=== PATIENT | male | born 1965 | race Caucasian/White ===

== ENCOUNTER 2017-05-09 12:47 | Emergency (ER) | payer BC ==
[2017-05-09] MEDS ORDERED: Aspirin 81 MG Tab.Chew PO ONE (15:21)
[2017-05-09] MEDS ORDERED: Ketorolac 60 MG/2 ML SDV IM ONE (17:19)
--- NOTE | 2017-05-09 17:19 | EDM.PDOC ---
[id number] CHEST PAINS Time Seen by Provider: 05/09/17 13:25 Source of Information: Reports: Patient History Limitations: Reports: No Limitations - History of Present Illness INITIAL COMMENTS - FREE TEXT/NARRATIVE: pt has been under a great deal of stress at his work situation. He has been having chest pain which is over the left chest to the left axilla and down the left arm. He had an episode that occured earlier today. He has had a past history of lymphoma. He did not get sweaty and did not vomit. Onset: Gradual Duration: Day(s): Location: Reports: Chest Associated Symptoms: Reports: Chest Pain, Other ( left arm pain. ) Chest Pain Score (Numeric/FACES): 2 - Related Data Allergies Allergy/AdvReac Type Severity Reaction Status Date / Time No Known Allergies Allergy Verified 05/09/17 13:23 Home Meds: Home Meds ALPRAZolam 1 tab PO BID PRN 05/09/17 [History] Cyclobenzaprine [Flexeril] 1 tab PO ASDIRECTED 05/09/17 [History] Naproxen 1 tab PO BID 05/09/17 [History] Pantoprazole [ProTONIX] 1 tab PO DAILY 05/09/17 [History] Past Medical History HEENT History: Reports: Allergic Rhinitis, Other (See Below) Other HEENT History: septum defect Respiratory History: Reports: Asthma Genitourinary History: Reports: Renal Calculus Musculoskeletal History: Reports: Fracture Neurological History: Reports: Migraines Psychiatric History: Reports: Anxiety Oncologic (Cancer) History: Reports: Non-Hodgkin's Lymphoma - Past Surgical History Male Surgical History: Reports: Other (See Below) Other Male Surgeries/Procedures: uteroscopy for kidney stone Musculoskeletal Surgical History: Reports: Shoulder Surgery Social & Family History - Tobacco Use Smoking Status *Q: Never Smoker - Alcohol Use Days Per Week of Alcohol Use: 5 Number of Drinks Per Day: 2 Total Drinks Per Week: 10 - Recreational Drug Use Recreational Drug Use: No ED ROS GENERAL - Review of Systems Review Of Systems: See Below Constitutional: Reports: No Symptoms HEENT: Reports: No Symptoms Respiratory: Reports: No Symptoms Cardiovascular: Reports: Chest Pain, Other (pt is getting left sided chest pain radiating into the axilla and down the left arm. ) Endocrine: Reports: No Symptoms GI/Abdominal: Reports: No Symptoms : Reports: No Symptoms Skin: Reports: No Symptoms Neurological: Reports: No Symptoms ED EXAM, GENERAL - Physical Exam Exam: See Below Free Text/Narrative:: pt arrived with pain in the left ches left axilla and into the left arm. Exam Limited By: No Limitations General Appearance: Alert, Mild Distress Ears: Normal TMs Nose: Normal Inspection Throat/Mouth: Normal Inspection Neck: Normal Inspection Respiratory/Chest: No Respiratory Distress Cardiovascular: Regular Rate, Rhythm GI/Abdominal: Soft, Non-Tender (Male) Exam: Deferred Rectal (Males) Exam: Deferred Back Exam: Normal Inspection Extremities: Normal Inspection Course - Vital Signs Last Recorded V/S: Last Vital Signs Temp 36.3 C 05/09/17 15:48 Pulse 64 05/09/17 17:25 Resp 10 L 05/09/17 17:25 BP 136/75 05/09/17 17:25 Pulse Ox 94 L 05/09/17 17:25 - Orders/Labs/Meds Orders: Active Orders 24 hr Category Date Time Status EKG Documentation Completion [RC] ASDIRECTED Care 05/09/17 13:55 Active Chest 2V [CR] Stat Exams 05/09/17 15:22 Taken EKG 12 Lead [EK] Routine Ther 05/09/17 13:55 Ordered Labs: Laboratory Tests 05/09/17 05/09/17 05/09/17 Range/Units 14:00 15:09 15:09 WBC 4.3 L (4.5-11.0) K/uL RBC 4.68 (4.30-5.90) M/uL Hgb 14.8 (12.0-15.0) g/dL Hct 43.5 (40.0-54.0) % MCV 93 (80-98) fL MCH 32 H (27-31) pg MCHC 34 (32-36) % Plt Count 180 (150-400) K/uL Neut % (Auto) 67 H (36-66) % Lymph % (Auto) 24 (24-44) % [place] % (Auto) 8 H (2-6) % Eos % (Auto) 1 L (2-4) % Baso % (Auto) 1 (0-1) % Sodium 140 (140-148) mmol/L Potassium 4.6 (3.6-5.2) mmol/L Chloride 105 (100-108) mmol/L Carbon Dioxide 28 (21-32) mmol/L Anion Gap 6.6 (5.0-14.0) mmol/L BUN 17 (7-18) mg/dL Creatinine 1.1 (0.8-1.3) mg/dL Est Cr Clr Drug Dosing 99.00 mL/min Estimated GFR (MDRD) > 60 (>60) Glucose 93 (74-106) mg/dL Calcium 8.3 L (8.5-10.1) mg/dL Total Bilirubin 0.6 (0.2-1.0) mg/dL AST 18 (15-37) U/L ALT 30 (12-78) U/L Alkaline Phosphatase 67 (46-116) U/L Troponin I < 0.017 (0.000-0.056) ng/mL Total Protein 7.2 (6.4-8.2) g/dL Albumin 3.8 (3.4-5.0) g/dL Globulin 3.4 (2.3-3.5) g/dL Albumin/Globulin Ratio 1.1 L (1.2-2.2) Meds: Medications Discontinued Medications Generic Name Dose Route Start Last Admin Trade Name Freq PRN Reason Stop Dose Admin Aspirin 324 mg 05/09/17 15:21 05/09/17 15:54 Aspirin PO 05/09/17 15:22 324 mg ONETIME ONE Administration Ketorolac Tromethamine 60 mg 05/09/17 17:19 05/09/17 17:35 Toradol IM 05/09/17 17:20 60 mg ONETIME ONE Administration - Re-Assessments/Exams Free Text/Narrative Re-Assessment/Exam: 05/09/17 17:22 pt has normal cardiac enzymes. He has a normallooking ekg and chest xray. He continues to have nagging pain at a 1 or a 2. He was given torodol 60mg im. He will return for a exercise cardiolyte. Departure - Departure Time of Disposition: 17:24 Disposition: Home, Self-Care 01 Reason for Transfer *Q: Primary PCI Indicated Condition: Fair Clinical Impression: Atypical chest pain, Stress at work Instructions: Nonspecific Chest Pain, [id number] Referrals: PCP,None [Primary Care Provider] - Forms: ED Department Discharge Care Plan Goals: tylenol or motrin for discomfort, baby asa daily, rtc for a exercise cardiolyte , - My Orders Last 24 Hours: My Active Orders 05/09/17 13:55 EKG Documentation Completion [RC] ASDIRECTED EKG 12 Lead [EK] Routine 05/09/17 15:22 Chest 2V [CR] Stat - Assessment/Plan Last 24 Hours: My Active Orders 05/09/17 13:55 EKG Documentation Completion [RC] ASDIRECTED EKG 12 Lead [EK] Routine 05/09/17 15:22 Chest 2V [CR] Stat
[2017-05-09 17:35] VITALS: BP 136/75
--- NOTE | 2017-05-10 09:14 | CR ---
Left subclavian Port-A-Cath with distal tip in upper SVC. No focal consolidation.
== END 2017-05-09 17:55 | disposition home or self-care (01) ==
LOC: JP.ED 12:47
DX: R07.89 Other chest pain (principal); Z56.3 Stressful work schedule; F41.9 Anxiety disorder, unspecified; J45.909 Unspecified asthma, uncomplicated; G43.909 Migraine, unspecified, not intractable, without status migrainosus; Z79.899 Other long term (current) drug therapy; Z98.890 Other specified postprocedural states
CPT/HCPCS: 36415; 71020; 80053; 84484; 85025; 93005; 96372; 99285; A9270; J1885